=== PATIENT | male | born 1965 | race Caucasian/White ===

== ENCOUNTER 2017-05-01 06:20 | Day surgery (SDC) | payer MEDICARE, OTHER ==
[~2017-05-01] VITALS: Ht 170.2 cm; Wt 69.8 kg
[~2017-05-01 06:20] MED LIST: ATIVAN0.5 MG PO; B COMPLETE1 EACH PO; DEPAKOTE250 MG PO; FERRONATE325 MG PO; GABAPENTIN100 MG PO; LEVETIRACETAM750 MG PO; MULTIVITAMINS1 EAC7 PO; PROPRANOLOL HCL40 MG PO; SEROQUEL300 MG PO; VENLAFAXINE HCL75 MG PO; VIT C-BIOFLAVO1 EACH PO; VITAMIN B 12
--- NOTE | 2017-05-01 07:58 | NUR ---
PT ALERT, ORIENTED AND SUPPORTED BY HIS MOTHER. PT ANSWERED WITH YES/NO TYPE ANSWERS. BOTH FRIENDLY, MOTHER REQUESTED PRAYER. WILL FOLLOW NEEDED
--- NOTE | 2017-05-01 08:33 | NUR ---
05/01/17 0833 Sunny Banegas REPOSITIONED PT IN BED AND GAVE SIPS OF WATER WITHOUT PROBLEMS. REORIENTED PT TO TIME AND SITUATION.
--- NOTE | 2017-05-05 09:12 | OR ---
[facility] [address] [place], [place] [address] Signed DATE OF OPERATION: 05/01/2017 SURGEON: Benjamin Wong MD PREOPERATIVE DIAGNOSES: 1. Colon screening. 2. History of limbic encephalitis with memory loss. POSTOPERATIVE DIAGNOSIS: Normal colon to cecum. PROCEDURE: Total colonoscopy to cecum. ANESTHESIA: Intravenous sedation, propofol infusion, Gisela Zamora CRNA. INDICATION: This 51-year-old white man is a patient of Dr. Yosef Merino. 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 Additionally, he has suffered testicular cancer in 2009, requiring surgical resection and radiation therapy. He was admitted at this time for screening colonoscopy. He understands the risks of bleeding, infection, and perforation. He has no symptoms of bleeding, diarrhea, or constipation and no family history of colon cancer. FINDINGS: The prep was excellent. Complete colonoscopy was undertaken to the cecum. There was no sign of polyps, diverticular formation, colitis, or cancer. He had minimal hemorrhoidal changes. DESCRIPTION OF PROCEDURE: The patient was brought to the endoscopy suite and placed in lateral decubitus position given intravenous sedation to the point of slurred speech and nystagmus. Digital rectal examination was normal. Olympus video colonoscope was passed in the rectum and manipulated throughout the colon ultimately intubating the cecum itself. The ileocecal valve and appendiceal orifice were normal. The scope was carefully withdrawn from that point. Notable was his bowel prep, which was quite excellent. Upon withdrawal of scope and careful inspection throughout, there was no sign of polyps, diverticular formation, colitis, or cancer. Retroflex view in the rectum showed minimal hemorrhoidal changes. Electronically Signed By: BENJAMIN WONG MD 05/05/17 0912 PATIENT NAME: WOODROW BOURNE OPERATIVE REPORT DATE OF : 67 PHYSICIAN: BENJAMIN WONG MD REPORT #: [id number] REPORT IS CONFIDENTIAL AND NOT TO BE RELEASED WITHOUT AUTHORIZATION [facility] [address] [facility] [place], [place] [address] Signed The scope was removed. The patient was taken to recovery room in good condition. CONCLUDING DIAGNOSIS: Normal colon to cecum. PLAN: Recommend repeat colonoscopy in 10 years or sooner if clinically indicated. He will return to the ongoing care of Dr. Merino. MD RAMON Alonso/MODL /[id number] cc: Yosef Merino MD Electronically Signed By: BENJAMIN WONG MD 05/05/17 0912 PATIENT NAME: WOODROW BOURNE OPERATIVE REPORT DATE OF : 67 PHYSICIAN: BENJAMIN WONG MD REPORT #: [id number] REPORT IS CONFIDENTIAL AND NOT TO BE RELEASED WITHOUT AUTHORIZATION
== END 2017-05-01 08:45 | disposition home or self-care (01) ==
LOC: DS 06:20 → OPS 06:20
PROVIDERS: Surgery
PROC: 0DJD8ZZ Inspection of Lower Intestinal Tract, Via Natural or Artificial Opening Endoscopic (ICD-10-PCS; principal; 2017-05-01 06:45)
DX: Z12.11 Encounter for screening for malignant neoplasm of colon (principal); K64.8 Other hemorrhoids; F32.9 Major depressive disorder, single episode, unspecified; G40.909 Epilepsy, unspecified, not intractable, without status epilepticus; Z88.0 Allergy status to penicillin; Z90.89 Acquired absence of other organs; Z85.47 Personal history of malignant neoplasm of testis; Z86.61 Personal history of infections of the central nervous system; Z98.890 Other specified postprocedural states; Z79.899 Other long term (current) drug therapy
CPT/HCPCS: G0121; 99156; 99157; J2250; J2704; J3010; J7120

== ENCOUNTER 2021-09-24 11:08 | Day surgery (SDC) | payer MEDICARE, OTHER ==
[~2021-09-24] VITALS: Ht 170.2 cm; Wt 63.6 kg
[~2021-09-24 11:08] MED LIST changes: +LAMICTAL25 MG PO
--- NOTE | 2021-09-24 13:05 | NUR ---
09/24/21 1305 Sheets,Lisa 1257 PT ARRIVED TO PACU ON LEFT SIDE AND RESP EVEN AND UNLABORED ON 6L VIA MASK. PT NONAROUSABLE TO TACTILE STIMULI, VSS.
--- NOTE | 2021-09-25 13:12 | OR ---
[facility] [address] [place], [place] [address] Signed DATE OF OPERATION: 09/24/2021 SURGEON: Benjamin Wong MD PREOPERATIVE DIAGNOSES: 1. History of encephalitis with resultant disability. 2. Colon screening. POSTOPERATIVE DIAGNOSIS: Possible diminutive polyp left colon (excised). PROCEDURE: Total colonoscopy to cecum with cold morcellation polypectomy x1. ANESTHESIA: Intravenous sedation, propofol infusion, Collins Clifford CRNA INDICATIONS: This 56-year-old white man is patient of Dr. Hoffmann, previously Dr. Pierce and is referred for colon screening. He last underwent colonoscopy nearly 10 years ago which was negative. There was no family history of colon cancer. No overt symptoms of bleeding, diarrhea, or constipation. He has a distant history of encephalitis with resultant disability. He is admitted at this time to undergo colonoscopy for screening. He understands the risks of bleeding, infection, and perforation. FINDINGS: The prep was adequate with irrigation. Complete colonoscopy was undertaken to the cecum without question. He had a small diminutive polyp of the left colon which was excised with cold morcellation technique. DESCRIPTION OF PROCEDURE: The patient was brought to the endoscopy suite and placed in lateral decubitus position, given intravenous sedation with propofol infusional technique by the residential energy auditor. Digital rectal examination was normal. An Olympus video colonoscope was passed in the rectum and manipulated into the sigmoid. Some amount of stool burden was noted. This was irrigated and with care and fair amount of irrigation, colonoscopy was able to be completed all the way to the cecum. Irrigation was undertaken as previously noted. The ileocecal valve and appendiceal orifice were normal. Scope was withdrawn. Examination throughout showed no sign of Electronically Signed By: BENJAMIN WONG MD 09/25/21 1312 PATIENT NAME: WOODROW BOURNE OPERATIVE REPORT DATE OF : 67 REPORT #: [id number] PHYSICIAN: BENJAMIN WONG MD PCP: RISHABH PIERCE MD REPORT IS CONFIDENTIAL AND NOT TO BE RELEASED WITHOUT AUTHORIZATION [facility] [address] [place], [place] [address] Signed abnormality into the left colon. A diminutive polyp was noted, this was excised with cold morcellation technique. Further withdrawal showed no other abnormality. Retroflexed view of the rectum showed some internal hemorrhoidal changes but no other problems. The scope was removed. The patient was taken to the recovery room in good condition. CONCLUDING DIAGNOSIS: Diminutive polyp left colon and internal hemorrhoids. PLAN: Recommend repeat colonoscopy in 10 years, sooner if clinically indicated. He will return to the ongoing care of Dr. Hoffmann. MD RAMON Alonso/SALBADORL /[id number] cc: Dr. Hoffmann Copies: ~ Electronically Signed By: BENJAMIN WONG MD 09/25/21 1312 PATIENT NAME: WOODROW BOURNE OPERATIVE REPORT DATE OF : 67 REPORT #: [id number] PHYSICIAN: BENJAMIN WONG MD PCP: RISHABH PIERCE MD REPORT IS CONFIDENTIAL AND NOT TO BE RELEASED WITHOUT AUTHORIZATION
--- NOTE | 2021-09-25 18:01 | PATH ---
[facility] [address] [place], [place] [address] Signed SPECIMEN(S): A DESCENDING/LEFT COLON POLYP SPECIMEN SOURCE: A. DESCENDING/LEFT COLON POLYP CLINICAL HISTORY: Screening colonoscopy. Dx: Polyp x 1. FINAL PATHOLOGIC DIAGNOSIS: Colon, descending/left, polyp, polypectomy: - Fragments of colonic mucosa with no histopathologic abnormality. - Negative for dysplasia or malignancy. COMMENT: Multiple additional deeper levels were examined. NAL:cml:C2NR MICROSCOPIC EXAMINATION: Histologic sections of all submitted blocks are examined by light microscopy. These findings, together with the gross examination, support the pathologic diagnosis. GROSS DESCRIPTION: The specimen, labeled "CP, descending colon polyp," is received in formalin and consists of three tam soft tissue fragments that measure 0.1 cm in greatest dimension. The specimen is entirely submitted in cassette (A1). JS (under the direct supervision of a pathologist) The Gross Description was prepared using a voice recognition system. The report was reviewed for accuracy; however, sound-alike word errors, addition and/or deletions may occur. If there is any question about this report, please contact Client Services. PERFORMING LABORATORY: The technical component was performed by [employer], [address] [place] [address] (CLIA# [id number]). [facility], [address] [address] (CLIA# [id number]). Diagnostician: Azul Mandujano MD PATIENT NAME: WOODROW BOURNE PATHOLOGY DATE OF : 67 REPORT #: [id number] PHYSICIAN: ELDA PATHOLOGY PCP: RISHABH FARRIS MD REPORT IS CONFIDENTIAL AND NOT TO BE RELEASED WITHOUT AUTHORIZATION [address] [address] Signed Pathologist Electronically Signed 09/25/2021 Copies: ~ PATIENT NAME: WOODROW BOURNE PATHOLOGY DATE OF : 67 REPORT #: [id number] PHYSICIAN: ELDA PATHOLOGY PCP: RISHABH FARRIS MD REPORT IS CONFIDENTIAL AND NOT TO BE RELEASED WITHOUT AUTHORIZATION
== END 2021-09-24 13:57 | disposition home or self-care (01) ==
LOC: OPS 11:08 → DS 11:09 → OPS 12:00
PROVIDERS: ATTEND Surgery
PROC: 0DBG8ZX Excision of Left Large Intestine, Via Natural or Artificial Opening Endoscopic, Diagnostic (ICD-10-PCS; principal; 2021-09-24 12:00)
DX: Z12.11 Encounter for screening for malignant neoplasm of colon (principal); K63.5 Polyp of colon; Z86.61 Personal history of infections of the central nervous system; G40.909 Epilepsy, unspecified, not intractable, without status epilepticus; I10 Essential (primary) hypertension; Z85.47 Personal history of malignant neoplasm of testis; Z86.59 Personal history of other mental and behavioral disorders; Z88.0 Allergy status to penicillin
CPT/HCPCS: J2704; J7121

== ENCOUNTER 2021-12-10 15:38 | Emergency (ER) | payer MEDICARE ==
[~2021-12-10] VITALS: Ht 170.2 cm; Wt 59.9 kg
--- OUTSIDE RECORDS SUMMARY | 2021-12-10 15:42 | XMS ---
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 Cheryle has no Care Guidelines for this patient. [place] VISIT COUNT (12 MO.) 1 [facility] TOTAL 1 NOTE: Visits indicate total known visits. ED/UCC VISIT TRACKING (12 MO.) 12/10/2021 15:40 [facility] [place] TYPE: Emergency COMPLAINT: - BLOOD IN STOOL INPATIENT VISIT TRACKING (12 MO.) No inpatient visits to display in this time frame [email or web address]
[2021-12-10] MEDS ORDERED: ZONISAMIDE100 MG PO (16:26)
[2021-12-10] MEDS ORDERED: ANUSOL-HC30 GM PR (16:52)
== END 2021-12-10 17:13 | disposition home or self-care (01) ==
LOC: ED 15:38
DX: K60.2 Anal fissure, unspecified (principal); K21.9 Gastro-esophageal reflux disease without esophagitis; Z88.0 Allergy status to penicillin; Z79.899 Other long term (current) drug therapy
CPT/HCPCS: 99284

== ENCOUNTER 2022-09-09 06:02 | Day surgery (SDC) | payer MEDICARE, OTHER ==
[2022-09-02 10:41] VITALS: BP 103/72
[~2022-09-09] VITALS: Ht 170.2 cm; Wt 53.2 kg
[~2022-09-09 06:02] MED LIST changes: +ANUSOL-HC30 GM PR; +BRINTELLIX20 MG PO; +L-METHYLFOLATE15 MG PO; +LAMOTRIGINE100 MG PO; +LAMOTRIGINE25 MG PO; +PREDNISONE20 MG PO; +TRAZODONE HCL50 MG PO; +ZESTRIL10 MG PO; +ZONISAMIDE100 MG PO
[2022-09-09 06:14] VITALS: BP 109/75
--- NOTE | 2022-09-09 08:14 | NUR ---
09/09/22 0814 Sharmin Mcmahon 0808-PATIENT ARRIVED TO PACU ON 2L NC PLACED ON RA RR EVEN. PATIENT REACTIVE TO VERBAL STIMULI VERY DROWSY. PATIENT LAYING LEFT LATERAL ABDOMEN SOFT IVF INFUSING. 0811-PATIENT REACTIVE TO VERBAL STIMULI SLIGHTLY OPENING EYES ORIENTED TO PACU. SR. IVF INFUSING. PATIENT SLEEPING
[2022-09-09 08:37] VITALS: BP 103/75
--- NOTE | 2022-09-09 10:55 | NUR ---
PT ALERT, ORIENTED AND HERE FOR HIS FIRST SCOPE. ALL QUESTIONS ASKED ANSWERED. PTS' PARENTS WILL BE HERE FOR DC. PT REQUESTED PRAYER, GAVE BLESSING
--- NOTE | 2022-09-09 13:19 | OR ---
[facility] [address] [place], [place] [address] Signed DATE OF OPERATION: 09/09/2022 SURGEON: Benjamin Wong MD PREOPERATIVE DIAGNOSES: Epigastric pain, weight loss, bloating and distant history of H pylori. POSTOPERATIVE DIAGNOSES: Antral gastritis and duodenitis with minimal duodenal erosions. PROCEDURE: Esophagogastroduodenoscopy with biopsy. ANESTHESIA: Intravenous sedation, propofol infusion, Bon Quiroz CRNA INDICATIONS: This 57-year-old white man is a patient of Dr. Rashid Pierce and known to me from the past. He underwent colonoscopy in 2021, which was essentially negative. The patient has had persistence of bloating, fullness and some epigastric pain as well as well as low-grade normocytic anemia. He has had no hematemesis or blood per rectum. The patient has underlying encephalitis related to memory loss and distant history of H pylori. Additionally, he has undergone treatment for testicular carcinoma in the past. His current symptoms include cramping and other abdominal complaints, but no diarrhea. He is incidentally noted to have a left inguinal hernia. He is referred by Dr. Pierce for consideration of upper endoscopy. He understands the risk of upper endoscopy including but not limited to bleeding, infection, and perforation. FINDINGS: Minimal duodenal erosions were noted as well as chronic duodenitis and antral gastritis. CLOtest was negative 15 minutes post procedure. The flap valve was normal and the esophagus was entirely normal. There was no evidence of actual ulcer or neoplasm. DESCRIPTION OF PROCEDURE: The patient was brought to the surgical endoscopy suite and placed in the lateral decubitus position, given topical lidocaine hypopharyngeal anesthesia by the marketing program coordinator. Given his advanced ASA classification, propofol infusional sedation had been given. Full cardiopulmonary monitoring was maintained. A bite block was placed Electronically Signed By: BENJAMIN WONG MD 09/09/22 1319 PATIENT NAME: WOODROW BOURNE OPERATIVE REPORT DATE OF : 67 REPORT #: [id number] PHYSICIAN: BENJAMIN WONG MD PCP: RASHID PIERCE MD REPORT IS CONFIDENTIAL AND NOT TO BE RELEASED WITHOUT AUTHORIZATION [facility] [address] [place], [place] [address] Signed and after satisfactory intravenous sedation, an Olympus video upper endoscope was passed in the hypopharynx. The vocal cords appeared normal. The scope was easily advanced to the esophagus, throughout its length it was normal. The scope was advanced to the stomach, which was insufflated with air. A somewhat edematous appearance of the mucosa was noted and somewhat cobblestone appearance of the antrum. The pylorus was normal and non-deformed. The scope was passed through into the duodenum. The duodenal bulb, 2nd and 3rd portions showed mild chronic inflammatory change and erosive changes but not severe. Biopsies were taken of the duodenum, the 2nd and bulbar portions. The scope was withdrawn and biopsies then taken of the antrum for both ROBERTO and pathologic testing. Retroflexed view confirmed a good flap valve overall. The scope was withdrawn to the distal esophagus and although it appeared normal. Biopsies were taken of the distal esophagus as well as the mid esophagus. Scope was removed and the patient was taken to the recovery room in good condition. CONCLUDING DIAGNOSES: Antral gastritis and duodenitis with minimal erosive change of duodenum. PLAN: We will empirically treat with PPI medication, Prilosec 20 mg daily for 8 weeks pending biopsy results. We will see him back in 6 to 8 weeks. If pathology report or CLOtest should indicate H pylori, then treatment for that would be undertaken as well. MD RAMON Alonso/SALBADORL /[id number] cc: Rashid Pierce MD Copies: RASHID PIERCE MD ~ Electronically Signed By: BENJAMIN WONG MD 09/09/22 1319 PATIENT NAME: WOODROW BOURNE OPERATIVE REPORT DATE OF : 67 REPORT #: [id number] PHYSICIAN: BENJAMIN WONG MD PCP: RASHID PIERCE MD REPORT IS CONFIDENTIAL AND NOT TO BE RELEASED WITHOUT AUTHORIZATION
--- NOTE | 2022-09-09 15:08 | EKG ---
[facility] [address] [facility] [place] [address] Signed Normal sinus rhythm Normal ECG When compared with ECG of 02-SEP-2022 09:48, Criteria for Septal infarct are no longer present Confirmed by MARIBEL WILLINGHAM MD ([id number]) on 09/09/2022 3:08:11 PM Electronically Signed By: MARIBEL WILLINGHAM MD 09/09/22 1508 PATIENT NAME: STEFFENWOODROW Electrocardiogram DATE OF : 67 PHYSICIAN: MARIBEL WILLINGHAM MD REPORT #: [id number] REPORT IS CONFIDENTIAL AND NOT TO BE RELEASED WITHOUT AUTHORIZATION
--- NOTE | 2022-09-11 17:18 | PATH ---
[facility] [address] [place], [place] [address] Signed SPECIMEN(S): A DUODENAL BIOPSY SPECIMEN(S): B ANTRUM/ANTRAL BIOPSY SPECIMEN(S): C LOWER ESOPHAGEAL BIOPSY SPECIMEN(S): D MIDDLE ESOPHAGEAL BIOPSY SPECIMEN SOURCE: A. DUODENAL BIOPSY B. ANTRUM/ANTRAL BIOPSY C. LOWER ESOPHAGEAL BIOPSY D. MIDDLE ESOPHAGEAL BIOPSY CLINICAL HISTORY: History of weight loss, anemia, positive H. pylori. Duodenitis, chronic gastritis. FINAL PATHOLOGIC DIAGNOSIS: A. Duodenum, biopsy: - Duodenal mucosa with normal villous architecture. - Negative for acute, chronic, and granulomatous inflammation. - Negative for dysplasia and malignancy. B. Stomach, antrum, biopsy: - Gastric antral-type mucosa with slight focal superficial chronic inflammation. - No acute or active inflammation identified. - No H. pylori-like organisms identified on routine histologic sections. - Negative for intestinal metaplasia, dysplasia, and malignancy. C. Lower esophagus, biopsy: - Stratified squamous esophageal mucosa with mild congestion in the rete peg vessels. - No inflammation, atypia, or malignancy identified. - Portion of acid-secreting gastric mucosa with slight superficial chronic inflammation and no acute or active inflammation. - No H. pylori-like organisms identified on routine Histologic sections. - Negative for intestinal metaplasia, dysplasia, and malignancy. D. Middle esophagus, biopsy: - Stratified squamous esophageal mucosa with congestion in the rete peg vessels. - Negative for acute, chronic, and eosinophilic inflammation. - Negative for dysplasia and malignancy. PATIENT NAME: WOODROW BOURNE PATHOLOGY DATE OF : 67 REPORT #: [id number] PHYSICIAN: ELDA MURO PCP: RISHABH FARRIS MD REPORT IS CONFIDENTIAL AND NOT TO BE RELEASED WITHOUT AUTHORIZATION [facility] [address] [place], [place] [address] Signed COMMENT: The patient's history of H. pylori is noted. Although there is no active inflammation, and no organisms are identified on routine histologic sections, immunohistochemical staining for H. pylori will be performed on Specimen B. The results will be reported in an addendum. SDL:[facility]:C2NR MICROSCOPIC EXAMINATION: Histologic sections of all submitted blocks are examined by light microscopy. These findings, together with the gross examination, support the pathologic diagnosis. GROSS DESCRIPTION: A. The specimen, labeled and designated "Crow, duodenal biopsy," is received in formalin and consists of four tam soft tissue fragments, ranging from 0.2 cm. Entirely submitted in (A1). B. The specimen, labeled and designated "Crow, antrum biopsy," is received in formalin and consists of two tam soft tissue fragments, ranging from 0.2-0.4 cm. Entirely submitted in (B1). C. The specimen, labeled and designated "Crow, lower esophagus biopsy," is received in formalin and consists of three tam soft tissue fragments, ranging from 0.1-0.2 cm. Entirely submitted in (C1). D. The specimen, labeled and designated "Crow, middle esophagus biopsy," is received in formalin and consists of seven tam soft tissue fragments, ranging from 0.1-0.3 cm. Entirely submitted in (D1). JS (under the direct supervision of a pathologist) The Gross Description was prepared using a voice recognition system. The report was reviewed for accuracy; however, sound-alike word errors, addition and/or deletions may occur. If there are any questions about this report, please contact Client Services. PERFORMING LABORATORY: The technical component was performed by [facility], [address] [place] [id number] (CLIA# [id number]). Professional interpretation was performed by [facility], [address] [place] [id number] (CLIA#: [id number]). Diagnostician: Rosina Nieves MD Pathologist Electronically Signed 09/11/2022 PATIENT NAME: WOODROW BOURNE PATHOLOGY DATE OF : 67 REPORT #: [id number] PHYSICIAN: ELDA PATHOLOGY PCP: RISHABH FARRIS MD REPORT IS CONFIDENTIAL AND NOT TO BE RELEASED WITHOUT AUTHORIZATION [facility] [address] [place], [place] [address], [place] [address] Signed Copies: ~ PATIENT NAME: WOODROW BOURNE PATHOLOGY DATE OF : 67 REPORT #: [id number] PHYSICIAN: ELDA MURO PCP: RISHABH FARRIS MD REPORT IS CONFIDENTIAL AND NOT TO BE RELEASED WITHOUT AUTHORIZATION
== END 2022-09-09 08:45 | disposition home or self-care (01) ==
LOC: OPS 06:02 → DS 06:02 → OPS 07:30 → DS 09:45
PROVIDERS: ATTEND Surgery
PROC: 0DB68ZX Excision of Stomach, Via Natural or Artificial Opening Endoscopic, Diagnostic (ICD-10-PCS; 2022-09-09)
PROC: 0DB98ZX Excision of Duodenum, Via Natural or Artificial Opening Endoscopic, Diagnostic (ICD-10-PCS; principal; 2022-09-09 07:30)
DX: K29.80 Duodenitis without bleeding (principal); K29.70 Gastritis, unspecified, without bleeding; K40.90 Unilateral inguinal hernia, without obstruction or gangrene, not specified as recurrent; D64.9 Anemia, unspecified; R63.4 Abnormal weight loss; I10 Essential (primary) hypertension; Z86.59 Personal history of other mental and behavioral disorders; Z85.47 Personal history of malignant neoplasm of testis; G40.909 Epilepsy, unspecified, not intractable, without status epilepticus
CPT/HCPCS: 93005; 93010; J2001; J2704; J7121

== ENCOUNTER 2022-12-29 16:53 | Emergency (ER) | payer MEDICARE, OTHER ==
[~2022-12-29] VITALS: Ht 170.2 cm; Wt 51.7 kg
[~2022-12-29 16:53] MED LIST changes: +ACETAMINOPHEN500 MG PO; +HYDROCODON-ACE1 EA10 PO; +IBUPROFEN600 MG PO
--- OUTSIDE RECORDS SUMMARY | 2022-12-29 16:55 | XMS ---
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 Cheryle has no Care Guidelines for this patient. [place] VISIT COUNT (12 MO.) 2 [facility] TOTAL 2 NOTE: Visits indicate total known visits. ED/UCC VISIT TRACKING (12 MO.) 12/29/2022 16:53 [facility] [place] TYPE: Emergency COMPLAINT: - VOMITING 08/29/2022 10:[address] [facility] [place] TYPE: Emergency COMPLAINT: - SKIN PROBLEM DIAGNOSES: - Allergy status to penicillin - Anxiety disorder, unspecified - Depression, unspecified - Other assisted (current) drug therapy - Rash and other nonspecific skin eruption - Urticaria, unspecified INPATIENT VISIT TRACKING (12 MO.) No inpatient visits to display in this time frame [id number]
[2022-12-29 18:53] LABS: HEMATOCRIT 32.5 % (35.0-50.0); HEMOGLOBIN 11.2 g/dL (12.0-18.0); MCHC 34.4 g/dl (30-36)
[2022-12-29 18:55] LABS: BASOPHILS 0.2 % (0-2); EOSINOPHILS 0.4 % (0-6); LYMPHOCYTES 8.2 % (24-44); MCH 36.4 (27-36); MCV 106.1 fl (81-99); MONOCYTES 0.3 % (0-12); NEUTROPHILS 90.9 % (39-80); PLATELET COUNT 206 K/uL (140-440); RBC 3.06 M/ul (4.3-5.7); RDW 24.1 (10.5-15.0)
[2022-12-29 19:07] LABS: ALBUMIN 4.2 g/dL (3.4-5.0); ALBUMIN/GLOBULIN RATIO 1.31 (1.1-2.4); ANION GAP 15.4 (7-21); BILIRUBIN, TOTAL 0.5 ng/dL (0.2-1.0); BUN/CREATININE RATIO 14.28 (6.0-28.6); CALCIUM 9.2 mg/dL (8.5-10.1); CREATININE, SERUM 0.84 mg/dL (0.70-1.30); MAGNESIUM 1.9 mg/dL (1.8-2.4); POTASSIUM 3.4 mmol/L (3.5-5.1); PROTEIN, TOTAL 7.4 g/dL (6.4-8.2)
[2022-12-29 19:11] LABS: SMEAR REVIEW BLOOD SEE COMMENTS
[2022-12-29] MEDS ORDERED: DEXAMETHAS0.5 MG/5 M PO (20:18)
[2022-12-29] MEDS ORDERED: PROMETHAZINE HC25 M1 PO (20:18)
[2022-12-29 20:44] VITALS: BP 103/67
== END 2022-12-29 20:45 | disposition home or self-care (01) ==
LOC: ED 16:53
PROVIDERS: Emergency Medicine
DX: R11.15 Cyclical vomiting syndrome unrelated to migraine (principal); K12.0 Recurrent oral aphthae; R23.8 Other skin changes; Z88.0 Allergy status to penicillin; Z79.899 Other long term (current) drug therapy
CPT/HCPCS: 36415; 80053; 83735; 85025; 85060; J1790; J2405

== ENCOUNTER 2023-01-29 15:28 | Emergency (ER) | payer MEDICARE, OTHER ==
[~2023-01-29] VITALS: Ht 170.2 cm; Wt 48.7 kg
[~2023-01-29 15:28] MED LIST changes: +DEXAMETHAS0.5 MG/5 M PO; +ONDANSETRON HCL4 MG PO; +PROMETHAZINE HC25 M1 PO
--- OUTSIDE RECORDS SUMMARY | 2023-01-29 15:30 | XMS ---
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 Cheryle has no Care Guidelines for this patient. [facility] VISIT COUNT (12 MO.) [address] [place], [place] [address] [facility] TOTAL 5 NOTE: Visits indicate total known visits. ED/C VISIT TRACKING (12 MO.) 01/29/2023 15:29 [facility] [place] TYPE: Emergency COMPLAINT: - VOMITING 01/11/2023 09:04 [facility] [place] TYPE: Emergency COMPLAINT: - VOMITING DIAGNOSES: - Allergy status to penicillin - Decreased white blood cell count, unspecified - Dehydration - Depression, unspecified - Epilepsy, unspecified, not intractable, without status epilepticus - Nausea with vomiting, unspecified - Noninfective gastroenteritis and colitis, unspecified - Other tank terminal gauger (current) drug therapy - Unspecified protein-calorie malnutrition 01/02/2023 17:09 [facility] [place] TYPE: Emergency DIAGNOSES: - Unspecified chronic gastritis without bleeding - NAUSEA ABD PAIN 12/29/2022 16:53 [facility] [place] TYPE: Emergency COMPLAINT: - VOMITING DIAGNOSES: - Allergy status to penicillin - Cyclical vomiting syndrome unrelated to migraine - Other fdc (current) drug therapy - Other skin changes - Recurrent oral aphthae - Vomiting, unspecified 08/29/2022 10:[address] [facility] [place] TYPE: Emergency COMPLAINT: - SKIN PROBLEM DIAGNOSES: - Allergy status to penicillin - Anxiety disorder, unspecified - Depression, unspecified - Other tank terminal gauger (current) drug therapy - Rash and other nonspecific skin eruption - Urticaria, unspecified INPATIENT VISIT TRACKING (12 MO.) No inpatient visits to display in this time frame [id number]
[2023-01-29] MEDS ORDERED: BRINTELLIX20 MG PO (16:19)
[2023-01-29 16:28] LABS: BASOPHILS 0.9 % (0-2); HEMOGLOBIN 9.8 g/dL (12.0-18.0); RBC 2.47 M/ul (4.3-5.7)
[2023-01-29 16:32] LABS: EOSINOPHILS 2.6 % (0-6); HEMATOCRIT 28.1 % (35.0-50.0); LYMPHOCYTES 21.1 % (24-44); MCH 39.6 (27-36); MCHC 34.8 g/dl (30-36); MCV 113.9 fl (81-99); MONOCYTES 0.5 % (0-12); NEUTROPHILS 74.9 % (39-80); PLATELET COUNT 104 K/uL (140-440); RDW 24.5 (10.5-15.0)
[2023-01-29 16:36] LABS: ALBUMIN 3.8 g/dL (3.4-5.0); ALBUMIN/GLOBULIN RATIO 1.41 (1.1-2.4); BILIRUBIN, TOTAL 1.4 ng/dL (0.2-1.0); BUN/CREATININE RATIO 24.71 (6.0-28.6); CALCIUM 9.4 mg/dL (8.5-10.1); CREATININE, SERUM 0.89 mg/dL (0.70-1.30); MAGNESIUM 1.8 mg/dL (1.8-2.4); PROTEIN, TOTAL 6.5 g/dL (6.4-8.2)
[2023-01-29 16:43] LABS: SMEAR REVIEW BLOOD SEE COMMENTS
[2023-01-29 18:48] LABS: BILIRUBIN, URINE NEGATIVE (negative); BLOOD/HGB, URINE NEGATIVE (Negative); KETONE, URINE TRACE (Negative); LEUK ESTERASE, URINE NEGATIVE (negative); NITRITE, URINE NEGATIVE (negative); PH, URINE 5.5 (5-7)
[2023-01-29 18:56] LABS: BACTERIA, URINE NONE SEEN /hpf (negative); CASTS, URINE GRANULAR 1+ \\lpf; COLLECTION TYPE, URINE CLEAN CATCH; CRYSTALS, URINE NONE SEEN (0-1+); EPITHELIAL CELLS, URINE NONE SEEN /lpf (0-1+); RED BLOOD CELLS, URINE 0-1 /hpf (0-5); REFLEX CULTURE, URINE No (No)
[2023-01-29] MEDS ORDERED: HYDROCODON-ACE1 EA10 PO (19:10)
[2023-01-29 20:00] VITALS: BP 104/62
== END 2023-01-29 20:18 | disposition home or self-care (01) ==
LOC: ED 15:28
PROVIDERS: Emergency Medicine
DX: R13.10 Dysphagia, unspecified (principal); D61.818 Other pancytopenia; Z88.0 Allergy status to penicillin
CPT/HCPCS: 36415; 71045; 80053; 81001; 83735; 85025; 85060; 96361; 96374; 96375; 99284-25; J1170; J2405; J7030

== ENCOUNTER 2023-03-04 08:42 | Emergency (ER) | payer MEDICARE, OTHER ==
[~2023-03-04] VITALS: Ht 170.2 cm; Wt 52.7 kg
--- OUTSIDE RECORDS SUMMARY | 2023-03-04 08:46 | XMS ---
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 Cheryle has no Care Guidelines for this patient. [facility] MO[facility] TOTAL 6 NOTE: Visits indicate total known visits. ED/C VISIT TRACKING (12 MO.) 03/04/2023 08:43 [facility] [place] TYPE: Emergency COMPLAINT: - MOUTH SORES, UNABLE TO EAT/SLEEP 01/29/2023 15:29 [facility] [place] TYPE: Emergency COMPLAINT: - VOMITING DIAGNOSES: - Allergy status to penicillin - Dysphagia, unspecified - Other pancytopenia - Vomiting, unspecified 01/11/2023 09:[address] [facility] [place] TYPE: Emergency COMPLAINT: - VOMITING DIAGNOSES: - Allergy status to penicillin - Decreased white blood cell count, unspecified - Dehydration - Depression, unspecified - Epilepsy, unspecified, not intractable, without status epilepticus - Nausea with vomiting, unspecified - Noninfective gastroenteritis and colitis, unspecified - Other buttermaker continuous churn (current) drug therapy - Unspecified protein-calorie malnutrition 01/02/2023 17:09 [facility] [place] TYPE: Emergency DIAGNOSES: - Unspecified chronic gastritis without bleeding - NAUSEA ABD PAIN 12/29/2022 16:53 [facility] [place] TYPE: Emergency COMPLAINT: - VOMITING DIAGNOSES: - Allergy status to penicillin - Cyclical vomiting syndrome unrelated to migraine - Other buttermaker continuous churn (current) drug therapy - Other skin changes - Recurrent oral aphthae - Vomiting, unspecified 08/29/2022 10:35 [facility] TYPE: Emergency COMPLAINT: - SKIN PROBLEM DIAGNOSES: - Allergy status to penicillin - Anxiety disorder, unspecified - Depression, unspecified - Other shelter (current) drug therapy - Rash and other nonspecific skin eruption - Urticaria, unspecified INPATIENT VISIT TRACKING (12 MO.) 02/01/2023 07:12 [facility] TYPE: Internal Medicine DIAGNOSES: . Encephalitis and encephalomyelitis, unspecified [id number]. Epilepsy, unspecified, not intractable, without status epilepticus [id number]. Other nonspecific abnormal finding of lung field [address]. Other pancytopenia [id number]
[2023-03-04] MEDS ORDERED: LAMOTRIGINE200 MG PO (09:06)
[2023-03-04] MEDS ORDERED: NYSTATIN100000 UN1 PO (09:06)
[2023-03-04] MEDS ORDERED: VIMPAT (09:09)
[2023-03-04] MEDS ORDERED: VALACYCLOVIR1000 MG PO (09:37)
[2023-03-04 09:46] VITALS: BP 105/64
== END 2023-03-04 09:46 | disposition home or self-care (01) ==
LOC: ED 08:42
DX: K12.1 Other forms of stomatitis (principal); Z88.0 Allergy status to penicillin; Z79.899 Other long term (current) drug therapy
CPT/HCPCS: 99283

== ENCOUNTER 2024-02-04 04:07 | Emergency (ER) | payer MEDICARE, OTHER ==
[~2024-02-04] VITALS: Ht 170.2 cm; Wt 57.1 kg
[~2024-02-04 04:07] MED LIST changes: +LAMOTRIGINE200 MG PO; +NYSTATIN100000 UN1 PO; +VALACYCLOVIR1000 MG PO; +VIMPAT
[2024-02-04] MEDS ORDERED: ondansetron HCL 4 MG/2 ML VIAL IV ONE (04:30)
[2024-02-04] MEDS ORDERED: KETOROLAC TROMETHAMINE 15 MG/ML VIAL IV ONE (04:30)
[2024-02-04] MEDS ORDERED: diazePAM 10 MG/2 ML SYR IV ONE (04:30)
[2024-02-04] MEDS ORDERED: SODIUM CHLORIDE 0.9% 500 ML IV PRN (04:30)
[2024-02-04 04:43] LABS: BASOPHILS 0.6 % (0-2); EOSINOPHILS 0.3 % (0-6); HEMATOCRIT 48.9 % (35.0-50.0); LYMPHOCYTES 18.4 % (24-44); MCH 34.7 (27-36); MCHC 34.7 g/dl (30-36); MCV 100.2 fl (81-99); MONOCYTES 6.7 % (0-12); PLATELET COUNT 225 K/uL (140-440); RBC 4.88 M/ul (4.3-5.7); RDW 13.5 (10.5-15.0)
[2024-02-04 04:46] LABS: ALBUMIN 4.7 g/dL (3.4-5.0); ALBUMIN/GLOBULIN RATIO 1.52 (1.1-2.4); BILIRUBIN, TOTAL 1.1 ng/dL (0.2-1.0); BUN/CREATININE RATIO 18.44 (6.0-28.6); CALCIUM 10.6 mg/dL (8.5-10.1); CREATININE, SERUM 1.03 mg/dL (0.70-1.30); PROTEIN, TOTAL 7.8 g/dL (6.4-8.2)
[2024-02-04] MEDS ORDERED: FLOMAX0.4 MG PO (05:05)
[2024-02-04] MEDS ORDERED: OMEPRAZOLE20 MG PO (05:05)
[2024-02-04] MEDS ORDERED: LACOSAMIDE100 MG PO (05:06)
[2024-02-04 05:40] LABS: INFLUENZA B NAA NEGATIVE (NEGATIVE); RESPIRATORY SYNCYTIAL VIR NAA NEGATIVE (NEGATIVE)
[2024-02-04] MEDS ORDERED: ACETAMINOPHEN/CAFFEINE/BUTALB 1 TAB TABLET PO ONE (06:15)
[2024-02-04 06:24] LABS: BILIRUBIN, URINE POSITIVE (negative); BLOOD/HGB, URINE NEGATIVE (Negative); KETONE, URINE >=80 (Negative); LEUK ESTERASE, URINE NEGATIVE (negative); NITRITE, URINE NEGATIVE (negative)
[2024-02-04 06:29] LABS: BACTERIA, URINE RARE /hpf (negative); CASTS, URINE NONE SEEN \\lpf; COLLECTION TYPE, URINE CLEAN CATCH; CRYSTALS, URINE NONE SEEN (0-1+); EPITHELIAL CELLS, URINE SQUAMOUS 1+ /lpf (0-1+); REFLEX CULTURE, URINE No (No)
[2024-02-04] MEDS ORDERED: ONDANSETRON ODT8 MG PO (06:38)
[2024-02-04] MEDS ORDERED: ONDANSETRON 4 MG HOME.PACK SL ONE (06:45)
[2024-02-04 07:29] VITALS: BP 145/100
== END 2024-02-04 07:30 | disposition home or self-care (01) ==
LOC: ED 04:07
PROVIDERS: Family Medicine
DX: E86.0 Dehydration (principal); K21.9 Gastro-esophageal reflux disease without esophagitis; Z88.0 Allergy status to penicillin; Z79.899 Other long term (current) drug therapy; Z11.52 Encounter for screening for COVID-19
CPT/HCPCS: 36415; 80053; 81001; 83735; 85025; 87088; 87502; 96361; 96374; 96375; 99284-25; A9270; J1885; J2405; J3360; J7040; U0002

== ENCOUNTER 2024-11-20 13:20 | Emergency (ER) | payer MEDICARE, OTHER ==
[~2024-11-20] VITALS: Ht 170.2 cm; Wt 59.2 kg
[~2024-11-20 13:20] MED LIST changes: +FLOMAX0.4 MG PO; +LACOSAMIDE100 MG PO; +OMEPRAZOLE20 MG PO; +ONDANSETRON ODT8 MG PO
[2024-11-20] MEDS ORDERED: DIPHTH,PERTUSS(ACELL),TET VAC 0.5 ML SYRINGE IM ONE (14:00)
[2024-11-20 14:40] VITALS: BP 137/95
== END 2024-11-20 14:40 | disposition home or self-care (01) ==
LOC: ED 13:20
DX: S61.214A Laceration without foreign body of right ring finger without damage to nail, initial encounter (principal); K21.9 Gastro-esophageal reflux disease without esophagitis; W23.0XXA Caught, crushed, jammed, or pinched between moving objects, initial encounter; Z79.899 Other long term (current) drug therapy; Z88.0 Allergy status to penicillin
CPT/HCPCS: 90471; 90715; 99282-25